=== PATIENT | female | born 1955 | race American Indian/Alaskan Native ===

== ENCOUNTER 2017-08-11 11:36 | Emergency (ER) | payer OTHER ==
--- NOTE | 2017-08-11 17:04 | Emergency Department Report ---
Blank Doc - Documentation Documentation: 62-year-old female with no significant past medical history came in complaining of left shoulder and left arm pain after lifting heavy things yesterday. She says she works at [employer] and lifts heavy things at work and now has left sided shoulder pain. P: shoulder x ray
--- NOTE | 2017-08-11 17:05 | Emergency Department Report ---
ED Extremity Problem HPI - General Chief complaint: Extremity Injury, Upper Stated complaint: LEFT ARM PAIN, ALLERGIES Time Seen by Provider: 08/11/17 16:53 Source: patient Mode of arrival: Ambulatory Limitations: No Limitations - History of Present Illness Initial comments: Pt reports she was having some pain in her arms, L > R after lifting some heavy objects yesterday. States now the pain is gone. Denies CP, SOB. Pt noncompliant with HTN therapy. Complaint: extremity pain -: Gradual, days(s) (1) Location: left, upper extremity -: Yes myalgia Severity scale (0 -10): 3 Quality: aching Consistency: constant Improves with: rest Worsens with: other (movement) Associated Symptoms: denies other symptoms - Related Data Previous Rx's Medication Instructions Recorded Last Taken Type Doxycycline [Vibramycin CAP] 100 mg PO BID #14 capsule 03/16/13 Unknown Rx HYDROcodone/APAP 10-325 [[place] 1 each PO Q6HR PRN #20 tablet 03/16/13 Unknown Rx 10/325] Lisinopril [Zestril TAB] 10 mg PO QDAY 30 Days tablet 03/16/13 Unknown Rx Mupirocin [Bactroban 2% OINT] 1 applic TP TID #1 tube 03/16/13 Unknown Rx Sulfamethoxazole/Trimethoprim 1 each PO BID #14 tablet 03/16/13 Unknown Rx [Bactrim DS] Hydrocortisone 2.5% [Hytone 2.5% 1 applicatio TP TID #1 tube 11/20/13 Unknown Rx CREAM] Ibuprofen [Motrin] 600 mg PO Q8H PRN #20 tablet 08/11/17 Unknown Rx Allergies Allergy/AdvReac Type Severity Reaction Status Date / Time No Known Allergies Allergy Unverified 03/15/13 17:15 ED Review of Systems ROS: Stated complaint: LEFT ARM PAIN, ALLERGIES Other details as noted in HPI Comment: All other systems reviewed and negative Constitutional: denies: chills, fever Eyes: denies: eye pain, eye discharge, vision change ENT: denies: ear pain, throat pain Respiratory: denies: cough, shortness of breath, wheezing Cardiovascular: denies: chest pain, palpitations Endocrine: no symptoms reported Gastrointestinal: denies: abdominal pain, nausea, diarrhea Genitourinary: denies: urgency, dysuria, discharge Musculoskeletal: as per HPI. denies: back pain, joint swelling, arthralgia Skin: denies: rash, lesions Neurological: denies: headache, weakness, paresthesias Psychiatric: denies: anxiety, depression Hematological/Lymphatic: denies: easy bleeding, easy bruising ED Past Medical Hx - Past Medical History Hx Hypertension: Yes Additional medical history: non-compliant with follow up for b/p. Recurrent staph wound infection - Surgical History Additional Surgical History: fibroids removed - Social History Smoking Status: Never Smoker Substance Use Type: Alcohol - Medications Home Medications: Home Medications Medication Instructions Recorded Confirmed Last Taken Type Doxycycline [Vibramycin CAP] 100 mg PO BID #14 capsule 03/16/13 Unknown Rx HYDROcodone/APAP 10-325 [[place] 1 each PO Q6HR PRN #20 tablet 03/16/13 Unknown Rx 10/325] Lisinopril [Zestril TAB] 10 mg PO QDAY 30 Days tablet 03/16/13 Unknown Rx Mupirocin [Bactroban 2% OINT] 1 applic TP TID #1 tube 03/16/13 Unknown Rx Sulfamethoxazole/Trimethoprim 1 each PO BID #14 tablet 03/16/13 Unknown Rx [Bactrim DS] Hydrocortisone 2.5% [Hytone 2.5% 1 applicatio TP TID #1 tube 11/20/13 Unknown Rx CREAM] Ibuprofen [Motrin] 600 mg PO Q8H PRN #20 tablet 08/11/17 Unknown Rx ED Physical Exam - General Limitations: No Limitations General appearance: alert, in no apparent distress - Head Head exam: Present: atraumatic, normocephalic - Eye Eye exam: Present: normal appearance, PERRL, EOMI - ENT ENT exam: Present: mucous membranes moist - Neck Neck exam: Present: normal inspection - Respiratory Respiratory exam: Present: normal lung sounds bilaterally. Absent: respiratory distress, wheezes - Cardiovascular Cardiovascular Exam: Present: regular rate, normal rhythm. Absent: systolic murmur, diastolic murmur, rubs, gallop - GI/Abdominal GI/Abdominal exam: Present: soft, normal bowel sounds. Absent: tenderness, guarding, rebound - Extremities Exam Extremities exam: Present: normal inspection, full ROM, normal capillary refill. Absent: tenderness, pedal edema, joint swelling, calf tenderness - Back Exam Back exam: Present: normal inspection - Neurological Exam Neurological exam: Present: alert, oriented X3, reflexes normal. Absent: motor sensory deficit - Psychiatric Psychiatric exam: Present: normal affect, normal mood - Skin Skin exam: Present: warm, dry, intact, normal color. Absent: rash ED Course Vital Signs 08/11/17 08/11/17 11:55 17:19 Temperature 98.9 F 98 F Pulse Rate 72 60 Respiratory 16 18 Rate Blood Pressure 201/103 Blood Pressure 156/62 [Left] O2 Sat by Pulse 98 99 Oximetry - Reevaluation(s) Reevaluation #1: 08/11/17 18:12 Pt stable for d/c. ED Medical Decision Making - EKG Data -: EKG Interpreted by Me EKG shows normal: sinus rhythm Rate: bradycardia - EKG Data When compared to previous EKG there are: previous EKG unavailable Interpretation: no acute changes - Radiology Data Radiology results: report reviewed naf - Medical Decision Making Pt presents with muscle pain after heavy lifting yesterday. EKG and imaging normal. Monitor BP. Follow up with PCP. - Differential Diagnosis strain, spasms, htn Critical care attestation.: If time is entered above; I have spent that time in minutes in the direct care of this critically ill patient, excluding procedure time. ED Disposition Clinical Impression: Elevated blood pressure reading, Myalgia Disposition: - TO HOME OR SELFCARE Is pt being admited?: No Condition: Good Instructions: Muscle Strain (ED), Chronic Hypertension (ED) Prescriptions: Ibuprofen [Motrin] 600 mg PO Q8H PRN #20 tablet PRN Reason: Pain Referrals: PRIMARY CARE, [Primary Care Provider] - 3-5 Days Time of Disposition: 18:14
[2017-08-11 17:20] VITALS: BP 156/62
--- NOTE | 2017-08-11 18:01 | XRay Report ---
FINAL REPORT EXAM: XR ELBOW 3+V LT HISTORY: excessive use of left elbow TECHNIQUE: 3 views of left elbow. PRIORS: None. FINDINGS: Mild degenerative change in the ulnohumeral articulation. No apparent fracture or dislocation. No abnormal fat pad sign. Soft tissues grossly unremarkable. IMPRESSION: 1. No acute osseous abnormality. 2. Degenerative changes.
--- NOTE | 2017-08-11 18:03 | XRay Report ---
FINAL REPORT EXAM: XR SHOULDER 2+V LT HISTORY: shoulder pain after lifting heavy things TECHNIQUE: 3 views of left shoulder. PRIORS: None. FINDINGS: Degenerative changes in the AC joint. No apparent fracture or dislocation. Mild and lobular cortical thickening in the proximal humeral diaphysis partially visualized, nonspecific. Soft tissues grossly unremarkable. IMPRESSION: 1. No acute osseous abnormality. 2. Degenerative changes.
== END 2017-08-11 18:36 | disposition home or self-care (01) ==
LOC: ED 11:36
DX: M79.1 Myalgia (principal); I10 Essential (primary) hypertension
CPT/HCPCS: 93005; 93010; 99283

== ENCOUNTER 2018-08-29 22:29 | Emergency (ER) | payer OTHER ==
[2018-08-30] MEDS ORDERED: BENADRYL PO ONE (03:14)
[2018-08-30] MEDS ORDERED: TYLENOL PO ONE ×2 (03:14→03:27)
[2018-08-30] MEDS ORDERED: AUGMENTIN 875 MG PO ONE (03:14)
--- NOTE | 2018-08-30 03:21 | Emergency Department Report ---
ED Dizziness HPI - General Chief Complaint: Dizziness Stated Complaint: DIZZINESS Time Seen by Provider: 08/30/18 02:59 Source: patient Mode of arrival: Ambulatory Limitations: No Limitations - History of Present Illness Initial Comments: Patient is a 63-year-old female who presents with dizziness 1 week 07/01 exacerbated by activity and movement and position there is associated sinus pressure or pain and sore throat patient has a history of seasonal allergies and recurrent sinusitis secondary complaint out of BP medicine on amlodipine 10 mg by mouth daily last dose 1 weak ago patient denies chest pain or shortness of breath no diaphoresis no back pain patient alert and oriented to baseline and Lipitor without shortness there is no edema no PND MD Complaint: dizziness Onset/Timin -: week(s) Timing: intermittent Description: sense of movement History of Same: Yes History of Trauma: No Severity: moderate Improves With: rest Worsens With: movement Associated Symptoms: cough, fever/chills, malaise - Related Data Previous Rx's Medication Instructions Recorded Last Taken Type DOXYCYCLINE Hyclate [Vibramycin 100 mg PO BID #14 capsule 03/16/13 Unknown Rx CAP] HYDROcodone/APAP 10-325 [[place] 1 each PO Q6HR PRN #20 tablet 03/16/13 Unknown Rx 10/325] Lisinopril [Zestril TAB] 10 mg PO QDAY 30 Days tablet 03/16/13 Unknown Rx Mupirocin [Bactroban 2% OINT] 1 applic TP TID #1 tube 03/16/13 Unknown Rx Sulfamethoxazole/Trimethoprim 1 each PO BID #14 tablet 03/16/13 Unknown Rx [Bactrim DS] Hydrocortisone 2.5% [Hytone 2.5% 1 applicatio TP TID #1 tube 11/20/13 Unknown Rx CREAM] Ibuprofen [Motrin] 600 mg PO Q8H PRN #20 tablet 08/11/17 Unknown Rx Acetaminophen [Acetaminophen TAB] 1,000 mg PO Q6HR PRN #30 tablet 08/30/18 Unknown Rx Amoxicillin/Potassium Clav 1 each PO BID 10 Days #20 tablet 08/30/18 Unknown Rx [Augmentin 875-125 Tablet] Fluticasone [Flonase] 1 spray NS QDAY #1 bottle 08/30/18 Unknown Rx amLODIPine [Norvasc] 10 mg PO DAILY #30 tab 08/30/18 Unknown Rx diphenhydrAMINE [Benadryl CAP] 25 mg PO Q8HR PRN #30 capsule 08/30/18 Unknown Rx Allergies Allergy/AdvReac Type Severity Reaction Status Date / Time No Known Allergies Allergy Unverified 03/15/13 17:15 ED Review of Systems ROS: Stated complaint: DIZZINESS Other details as noted in HPI Constitutional: chills, fever Eyes: denies: eye pain, eye discharge, vision change ENT: ear pain, throat pain, congestion. denies: epistaxis Respiratory: denies: cough, shortness of breath, wheezing Cardiovascular: denies: chest pain, palpitations Endocrine: no symptoms reported Gastrointestinal: denies: abdominal pain, nausea, vomiting, diarrhea, constipation Genitourinary: denies: urgency, dysuria, discharge Musculoskeletal: denies: back pain, joint swelling, arthralgia, myalgia Skin: denies: rash, lesions Neurological: denies: headache, weakness, numbness, paresthesias, confusion, abnormal gait, vertigo Psychiatric: denies: anxiety, depression Hematological/Lymphatic: denies: easy bleeding, easy bruising ED Past Medical Hx - Past Medical History Hx Hypertension: Yes Additional medical history: non-compliant with follow up for b/p. Recurrent staph wound infection - Surgical History Additional Surgical History: fibroids removed - Social History Smoking Status: Unknown if ever smoked Substance Use Type: None - Medications Home Medications: Home Medications Medication Instructions Recorded Confirmed Last Taken Type DOXYCYCLINE Hyclate [Vibramycin 100 mg PO BID #14 capsule 03/16/13 Unknown Rx CAP] HYDROcodone/APAP 10-325 [[place] 1 each PO Q6HR PRN #20 tablet 03/16/13 Unknown Rx 10/325] Lisinopril [Zestril TAB] 10 mg PO QDAY 30 Days tablet 03/16/13 Unknown Rx Mupirocin [Bactroban 2% OINT] 1 applic TP TID #1 tube 03/16/13 Unknown Rx Sulfamethoxazole/Trimethoprim 1 each PO BID #14 tablet 03/16/13 Unknown Rx [Bactrim DS] Hydrocortisone 2.5% [Hytone 2.5% 1 applicatio TP TID #1 tube 11/20/13 Unknown Rx CREAM] Ibuprofen [Motrin] 600 mg PO Q8H PRN #20 tablet 04/20/18 Unknown Rx Acetaminophen [Acetaminophen TAB] 1,000 mg PO Q6HR PRN #30 tablet 08/30/18 Unknown Rx Amoxicillin/Potassium Clav 1 each PO BID 10 Days #20 tablet 08/30/18 Unknown Rx [Augmentin 875-125 Tablet] Fluticasone [Flonase] 1 spray NS QDAY #1 bottle 08/30/18 Unknown Rx amLODIPine [Norvasc] 10 mg PO DAILY #30 tab 08/30/18 Unknown Rx diphenhydrAMINE [Benadryl CAP] 25 mg PO Q8HR PRN #30 capsule 08/30/18 Unknown Rx ED Physical Exam - General Limitations: No Limitations General appearance: alert, in no apparent distress - Head Head exam: Present: atraumatic, normocephalic - Eye Eye exam: Present: normal appearance, PERRL, EOMI Pupils: Present: normal accommodation - ENT ENT exam: Present: mucous membranes moist - Expanded ENT Exam Expanded Ear exam: Present: normal external inspection TM/Canal exam: Erythema: Right TM, Left TM, Canal Tenderness: Right TM, Left TM Mouth exam: Absent: normal external inspection, drooling, trismus, tongue normal, tongue elevation Teeth exam: Present: normal inspection Throat exam: Positive: tonsillar erythema, tonsillomegaly, other (uvula midline no exudate no lesion no ). Negative: tonsillar exudate, R peritonsillar mass, L peritonsillar mass - Neck Neck exam: Present: normal inspection, full ROM. Absent: tenderness, meningismus, lymphadenopathy, thyromegaly - Expanded Neck Exam Expanded Neck exam: Absent: tenderness (no posterior vertebral point tenderness ), midline deformity, thyroid mass, carotid bruit, tracheal deviation - Respiratory Respiratory exam: Present: normal lung sounds bilaterally. Absent: respiratory distress, wheezes, stridor, chest wall tenderness - Cardiovascular Cardiovascular Exam: Present: regular rate, normal rhythm, normal heart sounds. Absent: systolic murmur, diastolic murmur, rubs, gallop - GI/Abdominal GI/Abdominal exam: Present: soft, normal bowel sounds - Rectal Rectal exam: Present: deferred - Extremities Exam Extremities exam: Present: normal inspection, full ROM, normal capillary refill. Absent: tenderness, pedal edema, joint swelling, calf tenderness - Back Exam Back exam: Present: normal inspection, full ROM. Absent: tenderness, CVA tenderness (R), CVA tenderness (L), muscle spasm, paraspinal tenderness, vertebral tenderness, rash noted - Neurological Exam Neurological exam: Present: alert, oriented X3, CN II-XII intact, normal gait, reflexes normal - Psychiatric Psychiatric exam: Present: normal affect, normal mood - Skin Skin exam: Present: warm, dry, intact, normal color. Absent: rash ED Course Vital Signs 08/29/18 08/30/18 08/30/18 22:41 03:37 03:44 Temperature 98.1 F Pulse Rate 76 54 L 54 L Respiratory 18 18 Rate Blood Pressure 181/90 225/96 Blood Pressure 225/96 [Left] O2 Sat by Pulse 100 99 Oximetry ED Medical Decision Making - Medical Decision Making this is straight forward sinusitis, nares are boggy with clear post nasal drip, paln, augmentin , ibuprofen, zofran zyrtec ,pt denies dizziness no lightheadnes s no fever no chills, there is no cp no n/v no diaphoresis, pt is a/o x 3 ambulatory with steady gaitk will follow up with pcp in 2-3 days. Critical care attestation.: If time is entered above; I have spent that time in minutes in the direct care of this critically ill patient, excluding procedure time. ED Disposition Clinical Impression: Sinusitis Qualifiers: Sinusitis location: unspecified location Chronicity: acute Recurrence: non- recurrent Qualified Code(s): J01.90 - Acute sinusitis, unspecified Disposition: - TO HOME OR SELFCARE Is pt being admited?: No Does the pt Need Aspirin: No Condition: Stable Instructions: Sinusitis (ED), Acute Headache (ED) Prescriptions: Acetaminophen [Acetaminophen TAB] 1,000 mg PO Q6HR PRN #30 tablet PRN Reason: Headache Amoxicillin/Potassium Clav [Augmentin 875-125 Tablet] 1 each PO BID 10 Days #20 tablet diphenhydrAMINE [Benadryl CAP] 25 mg PO Q8HR PRN #30 capsule PRN Reason: sinus congestion Fluticasone [Flonase] 1 spray NS QDAY #1 bottle amLODIPine [Norvasc] 10 mg PO DAILY #30 tab Referrals: BALDEV MEJÍA MD [Staff Physician] - 3-5 Days Forms: Work/School Release Form(ED)
[2018-08-30] MEDS ORDERED: TYLENOL ONE (03:26)
[2018-08-30] MEDS ORDERED: CATAPRES ONE (03:36)
[2018-08-30] MEDS ORDERED: CATAPRES PO ONE (03:43)
[2018-08-30 04:32] VITALS: BP 195/86
== END 2018-08-30 04:31 | disposition home or self-care (01) ==
LOC: ED 22:29
DX: J01.90 Acute sinusitis, unspecified (principal); I10 Essential (primary) hypertension; Z79.899 Other long term (current) drug therapy
CPT/HCPCS: 99282

== ENCOUNTER 2020-05-14 22:39 | Emergency (ER) | payer SELFPAY ==
--- NOTE | 2020-05-15 01:54 | Emergency Department Report ---
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 She has been around several persons who have had come in contact with her bathroom which is usually not not the norm and thinks that they may have passed along an infection of some sort to her. States she only wants antibiotics he has an appointment with her primary care care doctor tomorrow and does not wish to have an incision and drainage. States that the pain is very minimal Severity: mild Quality: dull Consistency: constant Worsens with: none Context: none - Related Data Previous Rx's Medication Instructions Recorded Last Taken Type DOXYCYCLINE Hyclate [Vibramycin 100 mg PO BID #14 capsule 03/16/13 Unknown Rx CAP] HYDROcodone/APAP 10-325 [[place] 1 each PO Q6HR PRN #20 tablet 03/16/13 Unknown Rx 10/325] Mupirocin [Bactroban 2% OINT] 1 applic TP TID #1 tube 03/16/13 Unknown Rx Sulfamethoxazole/Trimethoprim 1 each PO BID #14 tablet 03/16/13 Unknown Rx [Bactrim DS] lisinopriL [Zestril TAB] 10 mg PO QDAY 30 Days tablet 03/16/13 Unknown Rx Hydrocortisone 2.5% [Hytone 2.5% 1 applicatio TP TID #1 tube 11/20/13 Unknown Rx CREAM] Ibuprofen [Motrin] 600 mg PO Q8H PRN #20 tablet 08/11/17 Unknown Rx Acetaminophen [Acetaminophen TAB] 1,000 mg PO Q6HR PRN #30 tablet 08/30/18 Unknown Rx Amoxicillin/Potassium Clav 1 each PO BID 10 Days #20 tablet 08/30/18 Unknown Rx [Augmentin 875-125 Tablet] Fluticasone [Flonase] 1 spray NS QDAY #1 bottle 08/30/18 Unknown Rx Triamcinolone [place] 0.1% (Nf) 1 applic TP BID #1 tube 08/30/18 Unknown Rx [Kenalog (NF)] amLODIPine 10 mg PO DAILY #30 tab 08/30/18 Unknown Rx diphenhydrAMINE [Benadryl CAP] 25 mg PO Q8HR PRN #30 capsule 08/30/18 Unknown Rx Ketorolac [Toradol] 10 mg PO Q6H PRN #14 tablet 05/15/20 Unknown Rx Sulfamethoxazole/Trimethoprim 1 each PO BID #20 tablet 05/15/20 Unknown Rx [Bactrim DS TAB] cephALEXin [Keflex] 500 mg PO Q8HR #30 cap 05/15/20 Unknown Rx Allergies Allergy/AdvReac Type Severity Reaction Status Date / Time No Known Allergies Allergy Unverified 03/15/13 17:15 Abscess Boil HPI - HPI Chief Complaint: Skin Rash Stated Complaint: INFECTED AREA ON BELLY Time Seen by Provider: 05/15/20 01:46 Home Medications: Previous Rx's Medication Instructions Recorded Last Taken Type DOXYCYCLINE Hyclate [Vibramycin 100 mg PO BID #14 capsule 03/16/13 Unknown Rx CAP] HYDROcodone/APAP 10-325 [[place] 1 each PO Q6HR PRN #20 tablet 03/16/13 Unknown Rx 10/325] Mupirocin [Bactroban 2% OINT] 1 applic TP TID #1 tube 03/16/13 Unknown Rx Sulfamethoxazole/Trimethoprim 1 each PO BID #14 tablet 03/16/13 Unknown Rx [Bactrim DS] lisinopriL [Zestril TAB] 10 mg PO QDAY 30 Days tablet 03/16/13 Unknown Rx Hydrocortisone 2.5% [Hytone 2.5% 1 applicatio TP TID #1 tube 11/20/13 Unknown Rx CREAM] Ibuprofen [Motrin] 600 mg PO Q8H PRN #20 tablet 08/11/17 Unknown Rx Acetaminophen [Acetaminophen TAB] 1,000 mg PO Q6HR PRN #30 tablet 08/30/18 Unknown Rx Amoxicillin/Potassium Clav 1 each PO BID 10 Days #20 tablet 08/30/18 Unknown Rx [Augmentin 875-125 Tablet] Fluticasone [Flonase] 1 spray NS QDAY #1 bottle 08/30/18 Unknown Rx Triamcinolone [place] 0.1% (Nf) 1 applic TP BID #1 tube 08/30/18 Unknown Rx [Kenalog (NF)] amLODIPine 10 mg PO DAILY #30 tab 08/30/18 Unknown Rx diphenhydrAMINE [Benadryl CAP] 25 mg PO Q8HR PRN #30 capsule 08/30/18 Unknown Rx Ketorolac [Toradol] 10 mg PO Q6H PRN #14 tablet 05/15/20 Unknown Rx Sulfamethoxazole/Trimethoprim 1 each PO BID #20 tablet 05/15/20 Unknown Rx [Bactrim DS TAB] cephALEXin [Keflex] 500 mg PO Q8HR #30 cap 05/15/20 Unknown Rx Allergies/Adverse Reactions: Allergies Allergy/AdvReac Type Severity Reaction Status Date / Time No Known Allergies Allergy Unverified 03/15/13 17:15 ED Review of Systems ROS: Stated complaint: INFECTED AREA ON BELLY Other details as noted in HPI Comment: All other systems reviewed and negative ED Past Medical Hx - Past Medical History Previous Medical History?: Yes Hx Hypertension: Yes Additional medical history: non-compliant with follow up for b/p. Recurrent staph wound infection - Surgical History Past Surgical History?: Yes Additional Surgical History: fibroids removed - Social History Smoking Status: Unknown if ever smoked Substance Use Type: None - Medications Home Medications: Home Medications Medication Instructions Recorded Confirmed Last Taken Type DOXYCYCLINE Hyclate [Vibramycin 100 mg PO BID #14 capsule 03/16/13 Unknown Rx CAP] HYDROcodone/APAP 10-325 [[place] 1 each PO Q6HR PRN #20 tablet 03/16/13 Unknown Rx 10/325] Mupirocin [Bactroban 2% OINT] 1 applic TP TID #1 tube 03/16/13 Unknown Rx Sulfamethoxazole/Trimethoprim 1 each PO BID #14 tablet 03/16/13 Unknown Rx [Bactrim DS] lisinopriL [Zestril TAB] 10 mg PO QDAY 30 Days tablet 03/16/13 Unknown Rx Hydrocortisone 2.5% [Hytone 2.5% 1 applicatio TP TID #1 tube 11/20/13 Unknown Rx CREAM] Ibuprofen [Motrin] 600 mg PO Q8H PRN #20 tablet 08/11/17 Unknown Rx Acetaminophen [Acetaminophen TAB] 1,000 mg PO Q6HR PRN #30 tablet 08/30/18 Unknown Rx Amoxicillin/Potassium Clav 1 each PO BID 10 Days #20 tablet 08/30/18 Unknown Rx [Augmentin 875-125 Tablet] Fluticasone [Flonase] 1 spray NS QDAY #1 bottle 08/30/18 Unknown Rx Triamcinolone [place] 0.1% (Nf) 1 applic TP BID #1 tube 08/30/18 Unknown Rx [Kenalog (NF)] amLODIPine 10 mg PO DAILY #30 tab 08/30/18 Unknown Rx diphenhydrAMINE [Benadryl CAP] 25 mg PO Q8HR PRN #30 capsule 08/30/18 Unknown Rx Ketorolac [Toradol] 10 mg PO Q6H PRN #14 tablet 05/15/20 Unknown Rx Sulfamethoxazole/Trimethoprim 1 each PO BID #20 tablet 05/15/20 Unknown Rx [Bactrim DS TAB] cephALEXin [Keflex] 500 mg PO Q8HR #30 cap 05/15/20 Unknown Rx ED Physical Exam - General Limitations: No Limitations General appearance: alert, in no apparent distress - Head Head exam: Present: atraumatic, normocephalic - Eye Eye exam: Present: normal appearance - ENT ENT exam: Present: normal exam, normal orophraynx, mucous membranes moist, TM's normal bilaterally - Neck Neck exam: Present: normal inspection, full ROM - Respiratory Respiratory exam: Present: normal lung sounds bilaterally. Absent: respiratory distress, wheezes, rales, rhonchi, accessory muscle use, decreased breath sounds - Cardiovascular Cardiovascular Exam: Present: regular rate, normal rhythm. Absent: systolic murmur, diastolic murmur, rubs, gallop - GI/Abdominal GI/Abdominal exam: Present: soft, normal bowel sounds. Absent: tenderness, guarding, rebound - Extremities Exam Extremities exam: Present: normal inspection - Back Exam Back exam: Present: normal inspection - Neurological Exam Neurological exam: Present: alert, oriented X3 - Psychiatric Psychiatric exam: Present: normal affect, normal mood - Skin Skin exam: Present: warm, intact, normal color, erythema (Cellulitis to the abdomen with a central fluctuant abscess noted.). Absent: rash - Expanded Skin Exam Expanded 1 - Cellulitis to this region with a central a central abscess minimal warmth is noted. ED Course Vital Signs 05/14/20 23:47 Temperature 98.0 F Pulse Rate 85 Respiratory 18 Rate Blood Pressure 226/103 O2 Sat by Pulse 96 Oximetry ED Medical Decision Making - Medical Decision Making Obese [place] female with cellulitis and abscess formation to her left abdomen. Discussion of the need for incision and drainage however the patient stated she would not like any incisions or drainage done this visit although she knows it may be needed later. States she wants to try just utilizing the antibiotics and following up with her primary care for anything as that may be needed. Advised covering her for MRSA with Bactrim Critical care attestation.: If time is entered above; I have spent that time in minutes in the direct care of this critically ill patient, excluding procedure time. ED Disposition Clinical Impression: Abscess, Cellulitis Disposition: TO HOME OR SELFCARE Is pt being admited?: No Does the pt Need Aspirin: No Condition: Stable Instructions: Skin Abscess, Cellulitis, Adult Additional Instructions: Please be sure to follow-up for wound evaluation with your primary care keep the appointment that you have scheduled to take the medication as prescribed your condition no worsen she may have no alternative than that of an incision and drainage Prescriptions: Sulfamethoxazole/Trimethoprim [Bactrim DS TAB] 1 each PO BID #20 tablet cephALEXin [Keflex] 500 mg PO Q8HR #30 cap Ketorolac [Toradol] 10 mg PO Q6H PRN #14 tablet PRN Reason: Pain Referrals: PRIMARY CARE, [Primary Care Provider] - 3-5 Days [facility] [Provider Group] - 3-5 Days
[2020-05-15 02:33] VITALS: BP 169/99
== END 2020-05-15 02:32 | disposition home or self-care (01) ==
LOC: ED 22:39
DX: L02.211 Cutaneous abscess of abdominal wall (principal); L03.311 Cellulitis of abdominal wall; I10 Essential (primary) hypertension; Z79.899 Other long term (current) drug therapy
CPT/HCPCS: 99282